=== PATIENT | female | born 1995 | race Caucasian/White ===

== ENCOUNTER 2019-09-27 16:40 | Emergency (ER) | payer OTHER, SELFPAY ==
[2019-09-27 16:41] VITALS: BP 115/100; PULSE 87; RESP 16; TEMP 36.8; O2SAT 100; BMI 22.0
[2019-09-27 16:45] VITALS: BP 117/72
[2019-09-27 16:46] VITALS: O2SAT 100
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
[2019-09-27] MEDS: Diphth,Pertuss(Acell),Tet Vac 0.5 ML Vial IM (17:18)
--- NOTE | 2019-09-27 17:31 | ED.DEP ---
ED Disposition - Plan for ED Patient: Instructions: LACERATION, All, Tetanus Immunization And F/U Referrals: Care Physician,No Primary [Primary Care Provider] -
[2019-09-27] MEDS: Ibuprofen 600 MG Tablet PO (17:42)
[2019-09-27 17:47] VITALS: BP 114/71; PULSE 84; RESP 18
== END 2019-09-27 17:55 | disposition home or self-care (01) ==
PROVIDERS: Emergency Provider Emergency Medicine
DX: S71.111A Laceration without foreign body, right thigh, initial encounter (principal); V19.9XXA Pedal cyclist (driver) (passenger) injured in unspecified traffic accident, initial encounter; Y93.55 Activity, bike riding; Y92.413 State road as the place of occurrence of the external cause; Y92.410 Unspecified street and highway as the place of occurrence of the external cause
CPT/HCPCS: 12001; 73502; 90471; 90715; 99285